=== PATIENT | female | born 1955 | race Hispanic/Latino ===

== ENCOUNTER 2018-06-05 07:34 | Day surgery (SDC) | payer MEDICARE ==
[2018-06-05 08:44] LABS: Basophils % (Auto) 0.2 % (0.0-1.8); Eosinophils # (Auto) 0.3 K/mm3 (0.0-0.4); Eosinophils % (Auto) 2.6 % (0.0-4.3); Hematocrit 42.8 % (30.3-42.9); Hemoglobin 14.3 gm/dl (10.1-14.3); Lymphocytes # (Auto) 3.1 K/mm3 (1.2-5.4); Lymphocytes % (Auto) 28.5 % (13.4-35.0); Mean Corpuscular HGB Conc 33 % (30-34); Mean Corpuscular Hemoglobin 30 pg (28-32); Mean Corpuscular Volume 89 fl (79-97); Monocytes # (Auto) 0.7 K/mm3 (0.0-0.8); Monocytes % (Auto) 6.8 % (0.0-7.3); Platelet Count 303 K/mm3 (140-440); Red Cell Distribution Width 14.1 % (13.2-15.2)
[2018-06-05 08:54] LABS: INR 0.95 (0.87-1.13)
[2018-06-05 08:55] LABS: BUN/Creatinine Ratio 16; Blood Urea Nitrogen 13 mg/dL (7-17); Calcium 9.4 mg/dL (8.4-10.2); Hemolysis Index 120
[2018-06-05] MEDS ORDERED: NACL 0.9% 500 ML 500 ML IV SCH (09:00)
[2018-06-05] MEDS ORDERED: SUBLIMAZE ONE (10:09)
[2018-06-05] MEDS ORDERED: VERSED ONE (10:09)
[2018-06-05] MEDS: HEPARIN/NS 5000 UNIT/500ML(CATH LAB) 1,000 ML IR ONE ×2 (10:37→11:02)
[2018-06-05] MEDS: NITROGLYCERIN SYRINGE 3 ML ONE ×2 (10:38→11:08)
[2018-06-05] MEDS: SUBLIMAZE ONE ×3 (10:38→11:33)
[2018-06-05] MEDS: VERSED ONE ×2 (10:38→11:02)
[2018-06-05] MEDS: XYLOCAINE 2% INFILTRATI ONE ×2 (10:38→11:05)
[2018-06-05] MEDS: HEPARIN 10,000 UNITS/10 ML ONE ×3 (10:39→11:35)
[2018-06-05] MEDS: CALAN ONE ×2 (10:39→11:08)
--- NOTE | 2018-06-05 12:22 | Discharge Summary ---
Short Stay Discharge Plan Activity: advance as tolerated Weight Bearing Status: Full Weight Bearing Diet: low fat, low cholesterol, low salt Wound: keep clean and dry Special Instructions: no heavy lifting (3 days) Additional Instructions: Patient underwent an outpatient cardiac catheterization via the right radial artery. Findings include heavy calcification of the mid and distal left main, with a tubular stenosis of moderate severity on multiple angiographic views. Due to the heavy calcification, recommended intravascular ultrasound which was completed and revealed much more severe disease of the left main than was apparent on angiography. Patient is stable post procedure and recovering well. She is recommended for cardiac thoracic evaluation for elective coronary artery bypass surgery. We will discuss with surgeons, regarding possibility of intrahospital transfer versus an outpatient visit to the office in the next several days. Follow up with: VAIBHAV PEOPLES MD [Primary Care Provider] - 7 Days SHAKA ARAGON MD [Staff Physician] - 7 Days
--- NOTE | 2018-06-05 12:35 | Cardiac Catherization Report ---
REASON FOR PROCEDURE: The patient is a 62-year-old woman with chronic tobacco abuse, who is referred for outpatient cardiac catheterization. The previous thallium stress test was negative, but due to recurrent chest pain, coronary angiography was recommended. PROCEDURES: 1. Left heart catheterization. 2. Selective coronary angiography. 3. Left ventricle angiography. 4. Intravascular ultrasound assessment of the left main. 5. Sedation time: Start 11:02, end 11:42. DESCRIPTION OF PROCEDURE: The patient was prepped and draped in a sterile fashion after informed consent. The right radial cath site was prepped and draped after a negative Karthik's test. The right radial artery was entered using the Seldinger technique followed by placement of a 6-[place] hydrophilic sheath. Routine radial cocktail was administered via the sheath. Selective left and right coronary angiography was performed using #3.5 left James and #4 right James catheters. A pigtail catheter was used for left ventricle angiography. FINDINGS: HEMODYNAMICS: Left ventricle end diastolic pressure was 20, following coronary angiography. Ascending aortic pressure was 140/80. There was no significant pressure gradient or pullback across the aortic valve. CORONARY ANGIOGRAPHY: There was [id number] diffuse coronary calcification. The left main coronary artery contained severe calcification in its mid to distal segment, associated with diffuse moderate luminal stenosis on multiple angiographic views. The left main coronary artery contained diffuse mild atherosclerosis in its proximal, mid, and distal segments involving the diagonal branches. The circumflex artery was a large dominant system. There was a long 50% stenosis of the proximal AV groove segment, followed by mild luminal irregularities in the rest of the circumflex system. The right coronary artery was a small caliber, nondominant vessel that contained moderate ostial stenosis. Left ventricular systolic function was at lower limits of normal, with ejection fraction 50-55% following an extrasystolic beat. INTRAVASCULAR ULTRASOUND: After angiographic review of the left main, we recommended intravascular ultrasound assessment of the mid and distal left main, with the angiographic appearance of severe calcification and moderate tubular stenosis. A #3.5 left James guiding catheter was selected and advanced to the left coronary ostium. A 0.014 inch [employer] 50 guidewire was then introduced, through the left main and into the LAD. Following wire placement, intravascular ultrasound interrogation was performed, beginning from the ostium and proximal LAD, and retrogradely into the distal, mid and proximal left main. We found severe diffuse concentric plaque and stenosis of the entire distal, mid left main. The minimum diameter of the left main in its mid to distal segment was 2.6 mm, with a minimum area of 4.3 square mm. This corresponded to an 85% area stenosis. CONCLUSION: 1. Severe calcification of the left main, associated with severe stenosis of the mid and distal vessel as identified on intravascular ultrasound. 2. Left circumflex dominant system. 3. Left ventricular systolic function at lower limits of normal, ejection fraction 50-55%. RECOMMENDATION: The patient will be recommended for CT surgical assessment, likely benefit from coronary artery bypass. JOB# [id number] LUCIANO/JENNY
[2018-06-05] MEDS ORDERED: NACL 0.9% 1000 ML 1,000 ML IV SCH (13:00)
[2018-06-05 15:19] VITALS: BP 140/64
== END 2018-06-05 07:35 | disposition home or self-care (01) ==
LOC: CATHLABREC 07:34
PROVIDERS: ATTEND Internal Medicine Cardiovascular Disease
DX: I25.10 Atherosclerotic heart disease of native coronary artery without angina pectoris (principal); I10 Essential (primary) hypertension; E78.00 Pure hypercholesterolemia, unspecified; J44.9 Chronic obstructive pulmonary disease, unspecified; K21.9 Gastro-esophageal reflux disease without esophagitis; M19.90 Unspecified osteoarthritis, unspecified site; F17.210 Nicotine dependence, cigarettes, uncomplicated; E66.9 Obesity, unspecified; Z68.33 Body mass index [BMI] 33.0-33.9, adult; Z79.01 Long term (current) use of anticoagulants; Z79.82 Long term (current) use of aspirin; Z79.899 Other long term (current) drug therapy; Z88.0 Allergy status to penicillin; Z98.890 Other specified postprocedural states; Z72.89 Other problems related to lifestyle; Z82.49 Family history of ischemic heart disease and other diseases of the circulatory system; Z83.3 Family history of diabetes mellitus
CPT/HCPCS: 36415; 80048; 85025; 85347; 85610; 85730; 92978; 93005; 93010; 93458; 99156; 99157; C1753; C1769; C1887; C1894; J1644; J2250; J3010; J7040; Q9967